=== PATIENT | female | born 1955 | race Caucasian/White ===

== ENCOUNTER 2018-06-04 20:30 | Outpatient (CLI) | payer OTHER | END 2018-06-04 20:31 | disposition home or self-care (01) | LOC: SLEEPLAB 20:30 | PROVIDERS: ATTEND Family Medicine | DX: G47.33 Obstructive sleep apnea (adult) (pediatric) (principal); R53.83 Other fatigue; G31.84 Mild cognitive impairment of uncertain or unknown etiology; R06.83 Snoring; E66.9 Obesity, unspecified; K21.9 Gastro-esophageal reflux disease without esophagitis; F32.9 Major depressive disorder, single episode, unspecified; E11.9 Type 2 diabetes mellitus without complications; I49.3 Ventricular premature depolarization; Z68.30 Body mass index [BMI] 30.0-30.9, adult | CPT/HCPCS: 95810 ==

== ENCOUNTER 2018-08-14 10:28 | Outpatient (CLI) | payer OTHER ==
--- NOTE | 2018-08-14 16:25 | MMO ---
Bilateral MAMMO Bilat Screen [facility]. CLINICAL HISTORY: Patient is 62 years old and is seen for screening. The patient has the following family history of breast cancer: mother. The patient has no personal history of cancer. VIEWS: The views performed were: bilateral craniocaudal with tomosynthesis and bilateral mediolateral oblique with tomosynthesis. FILMS COMPARED: The present examination has been compared to prior imaging studies performed at [facility] on 09/11/2016, and at [facility] on 09/28/2009 and 08/02/2011. MAMMOGRAM FINDINGS: There are scattered fibroglandular densities. There are benign appearing calcifications seen in the left breast. There are no suspicious masses, suspicious calcifications, or new areas of architectural distortion. IMPRESSION: THERE IS NO MAMMOGRAPHIC EVIDENCE OF MALIGNANCY. A ROUTINE FOLLOW-UP MAMMOGRAM IN 1 YEAR IS RECOMMENDED. THE RESULTS OF THIS EXAM WERE SENT TO THE PATIENT. ACR BI-RADS Category 2 - Benign finding MAMMOGRAPHY NOTE: 1. A negative mammogram report should not delay a biopsy if a dominant of clinically suspicious mass is present. 2. Approximately 10% to 15% of breast cancers are not detected by mammography. 3. Adenosis and dense breasts may obscure an underlying neoplasm.
== END 2018-08-14 10:29 | disposition home or self-care (01) ==
LOC: BICMAMMO 10:28
PROVIDERS: ATTEND Family Medicine
DX: Z12.31 Encounter for screening mammogram for malignant neoplasm of breast (principal); Z80.3 Family history of malignant neoplasm of breast
CPT/HCPCS: 77063; 77067

== ENCOUNTER 2020-03-02 12:50 | Outpatient (CLI) | payer OTHER ==
--- NOTE | 2020-03-02 13:30 | MMO ---
Bilateral MAMMO Bilat Screen [facility]. CLINICAL HISTORY: Patient is 64 years old and is seen for screening. The patient has the following family history of breast cancer: mother, at age 60. The patient has no personal history of cancer. VIEWS: The views performed were: bilateral craniocaudal with tomosynthesis and bilateral mediolateral oblique with tomosynthesis. FILMS COMPARED: The present examination has been compared to prior imaging studies performed at [facility] and [facility] on 06/13/2016 and 08/14/2018, and at [facility] on 09/28/2009 and 08/02/2011. This study has been interpreted with the assistance of computer-aided detection. MAMMOGRAM FINDINGS: There are scattered fibroglandular densities. There are no suspicious masses, suspicious calcifications, or new areas of architectural distortion. IMPRESSION: THERE IS NO MAMMOGRAPHIC EVIDENCE OF MALIGNANCY. A ROUTINE FOLLOW-UP MAMMOGRAM IN 1 YEAR IS RECOMMENDED. THE RESULTS OF THIS EXAM WERE SENT TO THE PATIENT. ACR BI-RADS Category 1 - Negative MAMMOGRAPHY NOTE: 1. A negative mammogram report should not delay a biopsy if a dominant of clinically suspicious mass is present. 2. Approximately 10% to 15% of breast cancers are not detected by mammography. 3. Adenosis and dense breasts may obscure an underlying neoplasm. Reported by: Mark MAC Electonically Signed: [id number]
== END 2020-03-02 12:51 | disposition home or self-care (01) ==
LOC: BICMAMMO 12:50
PROVIDERS: ATTEND Family Medicine
DX: Z12.31 Encounter for screening mammogram for malignant neoplasm of breast (principal); Z80.3 Family history of malignant neoplasm of breast
CPT/HCPCS: 77063; 77067

== ENCOUNTER 2021-02-19 09:54 | Inpatient (IN) | payer OTHER ==
[2021-02-19 10:21] LABS: #Eosinphils 0.1 thou/uL (0.0-0.7); #Lymphocytes 5.2 thou/uL (1.20-3.40); #Monocytes 0.7 thou/uL (0.11-0.59); #Neutrophils 5.9 thou/uL (1.40-6.50); %Basophils 0.4 % (0.0-1.0); %Eosinophils 1.2 % (0.0-10.0); %Lymphocytes 43.3 % (21.0-51.0); %Monocytes 6.1 % (0.0-10.0); %Neutrophils 49.1 % (42.0-75.0); Mean Corpuscular HGB CONC 33.9 g/dL (32.0-36.0); Mean Corpuscular Hemoglobin 32.3 pg (27.0-31.0); Mean Corpuscular Volume 95.1 fL (78.0-98.0); Platelet Count 259 thou/uL (130-400); RBC Distribution Width 11.7 % (11.5-14.5); Red Blood Cell (RBC) Count 4.33 mill/uL (4.20-5.40)
[2021-02-19] MEDS ORDERED: Boostrix 0.5 ML (Tdap) VIAL ONE (10:41)
[2021-02-19] MEDS ORDERED: Fentanyl 100 MCG/2 ML VIAL ONE (10:41)
[2021-02-19] MEDS ORDERED: ceFAZolin 2 GM/DEX 5% 100 ML BAG ONE (10:41)
[2021-02-19 10:43] LABS: ALT (SGPT) 40 U/L (8-55); AST (SGOT) 49 U/L (5-34); Albumin 3.7 g/dL (3.4-4.8); Alcohol Less than 10 mg/dL (Less than 10); Alkaline Phosphatase 97 U/L (40-110); Anion Gap 16 mmol/L (10-20); BUN (Urea Nitrogen) 12 mg/dL (9.8-20.1); Bilirubin, Total 0.5 mg/dL (0.2-1.2); Calc. Creatinine Clearance 0 mL/min (70-130); Carbon Dioxide 22 mmol/L (23-31); Chloride 102 mmol/L (98-107); Globulin 3.1 g/dL (2.4-3.5); Glucose 204 mg/dL (80-115); Lipase 114 U/L (8-78); Potassium 4.6 mmol/L (3.5-5.1); Protein, Total 6.8 g/dL (5.8-8.1); Sodium 135 mmol/L (136-145)
[2021-02-19] MEDS ORDERED: Lidocaine 1% w/Epinephrine 1:100K 20 ML VIAL ONE (10:53)
[2021-02-19 11:40] LABS: PTT 29.4 sec (22.9-36.1); Prothrombin Time 13.5 sec (12.0-14.7)
[2021-02-19] MEDS ORDERED: Dextrose 5% in Water 1,000 ML IV PRN (12:01)
[2021-02-19] MEDS ORDERED: Dextrose 50% Abboject 50 ML SYRINGE SLOW IVP PRN (12:01)
[2021-02-19] MEDS ORDERED: Ondansetron PF 4 MG/2 ML Vial IVP PRN (12:01)
[2021-02-19] MEDS ORDERED: Promethazine HCl 25 MG/ML VIAL IM PRN (12:01)
[2021-02-19] MEDS ORDERED: traMADol HCl 50 MG TAB PO PRN (12:08)
[2021-02-19] MEDS ORDERED: Sodium Chloride 0.9% 1,000 ML IV SCH (12:15)
[2021-02-19] MEDS ORDERED: Morphine 2 MG/ML VIAL ONE (12:51)
[2021-02-19 13:27] LABS: #Lymphocytes 1.4 thou/uL (1.20-3.40); #Neutrophils 9.9 thou/uL (1.40-6.50); %Basophils 0.2 % (0.0-1.0); %Eosinophils 0.1 % (0.0-10.0); %Lymphocytes 11.4 % (21.0-51.0); %Monocytes 8.3 % (0.0-10.0); Hemoglobin 12.6 g/dL (12.0-16.0); Mean Corpuscular HGB CONC 35.3 g/dL (32.0-36.0); Mean Corpuscular Hemoglobin 33.7 pg (27.0-31.0); Mean Corpuscular Volume 95.5 fL (78.0-98.0); Mean Platelet Volume 6.8 fL (7.4-10.4); Platelet Count 231 thou/uL (130-400); RBC Distribution Width 11.7 % (11.5-14.5); Red Blood Cell (RBC) Count 3.73 mill/uL (4.20-5.40); White Blood Cell (WBC) Count 12.4 thou/uL (4.8-10.8)
[2021-02-19 13:43] LABS: Lactic Acid 3.5 mmol/L (0.5-2.2)
[2021-02-19 13:46] LABS: Anion Gap 14 mmol/L (10-20); BUN (Urea Nitrogen) 13 mg/dL (9.8-20.1); Calc. Creatinine Clearance 0 mL/min (70-130); Calcium 8.3 mg/dL (7.8-10.44); Carbon Dioxide 22 mmol/L (23-31); Chloride 104 mmol/L (98-107); Glucose 206 mg/dL (80-115); Sodium 135 mmol/L (136-145)
[2021-02-19 13:52] LABS: Troponin I Less than 0.010 ng/mL (< 0.028)
[2021-02-19] MEDS: Acetaminophen 500 MG TAB PO SCH ×2 (15:09→17:52)
[2021-02-19] MEDS: Gabapentin 100 MG CAP PO SCH ×2 (15:09→20:36)
[2021-02-19 15:14] LABS: SARS-CoV-2 NAA Rapid Test Not Detected (NotDetected)
[2021-02-19] MEDS: Sodium Chloride 0.9% 1,000 ML IV SCH ×2 (15:55→21:51)
[2021-02-19] MEDS: traMADol HCl 50 MG TAB PO SCH (17:52)
[2021-02-19] MEDS ORDERED: ceFAZolin Sodium/D5W 2 GM in Premix Bag 1 BAG IVPB SCH (18:00)
[2021-02-19] MEDS: Atorvastatin Calcium 10 MG TAB PO SCH (20:36)
[2021-02-19] MEDS: Cyclobenzaprine 10 MG TAB PO PRN (20:37)
[2021-02-19] MEDS: Famotidine 20 MG TAB PO SCH (20:37)
[2021-02-19] MEDS: Famotidine/PF 20 mg/2ml Vial SLOW IVP SCH (20:37)
[2021-02-19] MEDS: Senokot S 8.6-50 MG TAB PO SCH (20:38)
[2021-02-20] MEDS: traMADol HCl 50 MG TAB PO SCH ×5 (00:01→23:19)
[2021-02-20] MEDS: Acetaminophen 500 MG TAB PO SCH ×5 (00:01→23:19)
[2021-02-20] MEDS: Morphine 2 MG/ML VIAL SLOW IVP PRN ×2 (02:56→08:56)
[2021-02-20 04:16] LABS: #Lymphocytes 2.1 thou/uL (1.20-3.40); #Monocytes 0.7 thou/uL (0.11-0.59); #Neutrophils 5.5 thou/uL (1.40-6.50); %Basophils 0.3 % (0.0-1.0); %Eosinophils 0.1 % (0.0-10.0); %Lymphocytes 25.8 % (21.0-51.0); %Neutrophils 65.8 % (42.0-75.0); Hemoglobin 10.9 g/dL (12.0-16.0); Mean Corpuscular HGB CONC 34.5 g/dL (32.0-36.0); Mean Corpuscular Hemoglobin 33.3 pg (27.0-31.0); Mean Corpuscular Volume 96.4 fL (78.0-98.0); Mean Platelet Volume 6.9 fL (7.4-10.4); Platelet Count 188 thou/uL (130-400); RBC Distribution Width 11.8 % (11.5-14.5); Red Blood Cell (RBC) Count 3.28 mill/uL (4.20-5.40); White Blood Cell (WBC) Count 8.3 thou/uL (4.8-10.8)
[2021-02-20 04:34] LABS: Phosphorus 3.5 mg/dL (2.3-4.7)
[2021-02-20 04:36] LABS: Anion Gap 12 mmol/L (10-20); BUN (Urea Nitrogen) 10 mg/dL (9.8-20.1); Calc. Creatinine Clearance 94 mL/min (70-130); Calcium 7.9 mg/dL (7.8-10.44); Carbon Dioxide 25 mmol/L (23-31); Chloride 101 mmol/L (98-107); Glucose 164 mg/dL (80-115); Magnesium 1.5 mg/dL (1.6-2.6); Potassium 4.3 mmol/L (3.5-5.1); Sodium 134 mmol/L (136-145)
[2021-02-20] MEDS ORDERED: Hydrocortisone Sod Succ/PF 100 mg/2 ml Vial IVP SCH (05:00)
[2021-02-20] MEDS: Sodium Chloride 0.9% 1,000 ML IV SCH ×3 (05:13→23:55)
[2021-02-20] MEDS ORDERED: Magnesium Sulfate 3 GM in Sodium Chloride 0.9% 100 ML IV SCH (05:30)
[2021-02-20] MEDS: Polyethylene Glycol 3350 17 GM Packet PO SCH (09:08)
[2021-02-20] MEDS: Senokot S 8.6-50 MG TAB PO SCH ×2 (09:08→20:08)
[2021-02-20] MEDS: Famotidine 20 MG TAB PO SCH ×2 (09:08→20:00)
[2021-02-20] MEDS: Gabapentin 100 MG CAP PO SCH ×3 (09:08→20:06)
[2021-02-20] MEDS: FLUoxetine HCl 20 MG CAP PO SCH (09:08)
[2021-02-20] MEDS: Multivit, Therapeutic 1 TAB PO SCH (09:08)
[2021-02-20] MEDS: Famotidine/PF 20 mg/2ml Vial SLOW IVP SCH ×2 (09:08→21:28)
[2021-02-20] MEDS ORDERED: ceFAZolin 2 GM/DEX 5% 100 ML BAG ONE (09:30)
[2021-02-20] MEDS ORDERED: Fentanyl 100 MCG/2 ML VIAL ONE ×2 (09:45→10:57)
[2021-02-20] MEDS ORDERED: Lidocaine 2% Jelly 5 ML TUBE ONE (09:45)
[2021-02-20] MEDS ORDERED: HYDROmorphone 2 MG/ML VIAL ONE (10:57)
[2021-02-20] MEDS ORDERED: Midazolam HCl 2 mg/2 ml Vial ONE (11:17)
[2021-02-20] MEDS ORDERED: Dexamethasone 20 MG/5 ML VIAL ONE (11:51)
[2021-02-20] MEDS ORDERED: Lidocaine 1% PF 5 ML VIAL ONE (11:51)
[2021-02-20] MEDS ORDERED: ePHEDrine 50 MG/ML VIAL ONE (11:51)
[2021-02-20] MEDS ORDERED: PHENYLEPHRINE-NS 100 MCG/ML 10 ML SYRINGE ONE ×2 (11:51→12:39)
[2021-02-20] MEDS ORDERED: Rocuronium Bromide 10 MG/ML (10ML VIAL) ONE (11:51)
[2021-02-20] MEDS ORDERED: Ondansetron PF 4 MG/2 ML Vial ONE (11:51)
[2021-02-20] MEDS ORDERED: Glycopyrrolate 0.2 MG/ML 5 ML SYRINGE ONE (11:51)
[2021-02-20] MEDS ORDERED: PROPOFOL 200 MG/20 ML VIAL ONE (11:51)
[2021-02-20] MEDS ORDERED: ePHEDrine Sulfate 50 MG/10 ML VIAL ONE (12:39)
[2021-02-20] MEDS ORDERED: Ondansetron HCl/PF 4 MG/2 ML Vial IVP PRN (13:09)
[2021-02-20] MEDS ORDERED: HYDROmorphone 2 MG/ML VIAL SLOW IVP PRN (13:09)
[2021-02-20] MEDS ORDERED: Promethazine HCl 25 MG/ML VIAL IVPB PRN (13:09)
[2021-02-20] MEDS ORDERED: Promethazine HCl 25 MG/ML VIAL IM PRN (13:09)
[2021-02-20] MEDS: Hydrocortisone Sod Succ/PF 100 mg/2 ml Vial IVP SCH ×2 (14:33→21:18)
[2021-02-20] MEDS ORDERED: TRULICITY SC SCH (17:00)
[2021-02-20] MEDS: HumaLOG 300 UNITS/3 ML VIAL SC PRN ×2 (17:42→21:18)
[2021-02-20] MEDS: ceFAZolin Sodium/D5W 2 GM in Premix Bag 1 BAG IVPB SCH (18:39)
[2021-02-20] MEDS: Atorvastatin Calcium 10 MG TAB PO SCH (20:00)
[2021-02-21] MEDS: ceFAZolin Sodium/D5W 2 GM in Premix Bag 1 BAG IVPB SCH (02:44)
[2021-02-21] MEDS: Acetaminophen 500 MG TAB PO SCH ×4 (05:03→23:21)
[2021-02-21] MEDS: Hydrocortisone Sod Succ/PF 100 mg/2 ml Vial IVP SCH (05:03)
[2021-02-21] MEDS: traMADol HCl 50 MG TAB PO SCH ×5 (05:04→23:22)
[2021-02-21] MEDS: HumaLOG 300 UNITS/3 ML VIAL SC PRN ×3 (05:45→18:34)
[2021-02-21 05:52] VITALS: BMI 33.3
[2021-02-21] MEDS ORDERED: Lisinopril 20 MG TAB PO SCH (09:00)
[2021-02-21] MEDS: Sodium Chloride 0.9% 1,000 ML IV SCH ×3 (09:15→23:27)
[2021-02-21] MEDS: Gabapentin 100 MG CAP PO SCH ×3 (09:16→20:03)
[2021-02-21] MEDS: Senokot S 8.6-50 MG TAB PO SCH ×2 (09:16→20:03)
[2021-02-21] MEDS: Lisinopril 20 MG TAB PO SCH (09:16)
[2021-02-21] MEDS: Famotidine 20 MG TAB PO SCH ×2 (09:16→20:02)
[2021-02-21] MEDS: FLUoxetine HCl 20 MG CAP PO SCH (09:17)
[2021-02-21] MEDS: Multivit, Therapeutic 1 TAB PO SCH (09:18)
[2021-02-21] MEDS: Polyethylene Glycol 3350 17 GM Packet PO SCH (09:18)
[2021-02-21] MEDS: metFORMIN 500 MG TAB PO SCH (09:24)
[2021-02-21] MEDS: Enoxaparin Sodium 40 MG/0.4 ML SYRINGE SC SCH (09:24)
[2021-02-21] MEDS: Cyclobenzaprine 10 MG TAB PO PRN (13:07)
[2021-02-21] MEDS: Gabapentin 300 MG CAP PO SCH (21:31)
[2021-02-22] MEDS: Acetaminophen 500 MG TAB PO SCH ×4 (05:05→21:22)
[2021-02-22] MEDS: traMADol HCl 50 MG TAB PO SCH ×3 (05:05→17:13)
[2021-02-22 06:23] LABS: #Eosinphils 0.1 thou/uL (0.0-0.7); #Lymphocytes 3.1 thou/uL (1.20-3.40); #Monocytes 0.6 thou/uL (0.11-0.59); #Neutrophils 4.1 thou/uL (1.40-6.50); %Basophils 0.5 % (0.0-1.0); %Eosinophils 1.8 % (0.0-10.0); %Lymphocytes 38.5 % (21.0-51.0); %Monocytes 7.6 % (0.0-10.0); %Neutrophils 51.7 % (42.0-75.0); Hemoglobin 8.1 g/dL (12.0-16.0); Mean Corpuscular HGB CONC 33.4 g/dL (32.0-36.0); Mean Corpuscular Hemoglobin 32.5 pg (27.0-31.0); Mean Corpuscular Volume 97.4 fL (78.0-98.0); Mean Platelet Volume 7.3 fL (7.4-10.4); Platelet Count 140 thou/uL (130-400); Red Blood Cell (RBC) Count 2.49 mill/uL (4.20-5.40); White Blood Cell (WBC) Count 7.9 thou/uL (4.8-10.8)
[2021-02-22 06:44] LABS: Anion Gap 8 mmol/L (10-20); BUN (Urea Nitrogen) 10 mg/dL (9.8-20.1); Calc. Creatinine Clearance 125 mL/min (70-130); Calcium 8.2 mg/dL (7.8-10.44); Carbon Dioxide 29 mmol/L (23-31); Chloride 104 mmol/L (98-107); Glucose 156 mg/dL (80-115); Magnesium 1.8 mg/dL (1.6-2.6); Potassium 4.2 mmol/L (3.5-5.1); Sodium 137 mmol/L (136-145)
[2021-02-22 06:47] LABS: Phosphorus 1.5 mg/dL (2.3-4.7)
[2021-02-22] MEDS: Lisinopril 20 MG TAB PO SCH (08:51)
[2021-02-22] MEDS: Multivit, Therapeutic 1 TAB PO SCH (08:51)
[2021-02-22] MEDS: FLUoxetine HCl 20 MG CAP PO SCH (08:52)
[2021-02-22] MEDS: Ascorbic Acid 500 mg Chewable Tablet PO SCH ×2 (08:52→20:42)
[2021-02-22] MEDS: metFORMIN 500 MG TAB PO SCH (08:52)
[2021-02-22] MEDS: Gabapentin 300 MG CAP PO SCH ×3 (08:53→20:42)
[2021-02-22] MEDS: Ferrous Sulfate 325 MG TAB PO SCH ×2 (08:53→17:14)
[2021-02-22] MEDS: Enoxaparin Sodium 40 MG/0.4 ML SYRINGE SC SCH (08:55)
[2021-02-22] MEDS: Polyethylene Glycol 3350 17 GM Packet PO SCH (08:55)
[2021-02-22] MEDS: Famotidine 20 MG TAB PO SCH ×2 (08:55→20:43)
[2021-02-22] MEDS: Senokot S 8.6-50 MG TAB PO SCH ×2 (08:55→20:43)
[2021-02-22] MEDS: Cyclobenzaprine 10 MG TAB PO PRN (09:01)
[2021-02-22] MEDS: Magnesium 2 GM/50 ML 2 GM in Premix Bag 1 BAG IVPB SCH ×2 (10:30→11:59)
[2021-02-22] MEDS: PHOS-NAK 1 PKT PACK PO SCH ×2 (11:39→20:43)
[2021-02-22] MEDS ORDERED: Magnesium 2 GM/50 ML 2 GM in Premix Bag 1 BAG IVPB SCH (12:00)
[2021-02-22] MEDS: Ketorolac Tromethamine 30 MG/ML VIAL IVP SCH ×2 (12:16→17:13)
[2021-02-22 20:27] VITALS: BP 103/65; TEMP 98.4
[2021-02-22] MEDS: Atorvastatin Calcium 10 MG TAB PO SCH (20:43)
[2021-02-23] MEDS ORDERED: Transdermal Patch Removal TOP SCH (01:00)
[2021-02-23] MEDS ORDERED: Levothyroxine Sodium 25 MCG TAB PO SCH (06:00)
[2021-02-23] MEDS ORDERED: Levothyroxine Sodium 112 MCG TAB PO SCH (06:00)
[2021-02-23] MEDS ORDERED: Cholecalciferol 1,000 UNITS (25 MCG) TAB PO SCH (09:00)
[2021-02-23] MEDS ORDERED: Lidocaine 5% Patch TD SCH (13:00)
== END 2021-02-22 21:45 | DRG 516 ==
LOC: ERS 09:54 → IMCU/EMU 12:06 → SURG A 02-20 09:54
PROVIDERS: ADMIT Surgery; ATTEND Surgery
PROC: 0SH834Z Insertion of Internal Fixation Device into Left Sacroiliac Joint, Percutaneous Approach (ICD-10-PCS; principal; 2021-02-20)
DX: S32.810A Multiple fractures of pelvis with stable disruption of pelvic ring, initial encounter for closed fracture (principal); S42.294A Other nondisplaced fracture of upper end of right humerus, initial encounter for closed fracture; S22.41XA Multiple fractures of ribs, right side, initial encounter for closed fracture; Z20.822 Contact with and (suspected) exposure to COVID-19; S42.025A Nondisplaced fracture of shaft of left clavicle, initial encounter for closed fracture; S82.832A Other fracture of upper and lower end of left fibula, initial encounter for closed fracture; E11.9 Type 2 diabetes mellitus without complications; I10 Essential (primary) hypertension; E78.5 Hyperlipidemia, unspecified; E03.9 Hypothyroidism, unspecified; V03.00XA Pedestrian on foot injured in collision with car, pick-up truck or van in nontraffic accident, initial encounter; Z88.1 Allergy status to other antibiotic agents; Z79.84 Long term (current) use of oral hypoglycemic drugs; Z79.890 Hormone replacement therapy; Z79.899 Other long term (current) drug therapy
CPT/HCPCS: 36415; 36416; 70450; 71045; 71260; 72125; 72170; 72202; 74177; 76000; 80048; 80053; 80307; 82533; 83605; 83690; 83735; 84100; 84484; 85025; 85610; 85730; 86850; 86900; 86901; 87624; 88142; 90715; 93005; 93306; C1713; C1769; G0123; G0390; J1100; J1170; J1650; J1720; J1815; J1885; J2250; J2270; J2405; J2704; J3010; J3475; J3490; J7050; U0002

== ENCOUNTER 2022-04-03 12:33 | Outpatient (CLI) | payer OTHER | END 2022-04-03 12:34 | disposition home or self-care (01) | LOC: BICRAD 12:33 | PROVIDERS: ATTEND Physical Therapist | DX: S22.43 Multiple fractures of ribs, bilateral (principal); S82.832B Other fracture of upper and lower end of left fibula, initial encounter for open fracture type I or II; S32.59 Other specified fracture of pubis; S32.10XB Unspecified fracture of sacrum, initial encounter for open fracture; S42.002B Fracture of unspecified part of left clavicle, initial encounter for open fracture; S42.301B Unspecified fracture of shaft of humerus, right arm, initial encounter for open fracture ==

== ENCOUNTER 2022-06-06 09:39 | Outpatient (CLI) | payer OTHER | END 2022-06-06 09:40 | disposition home or self-care (01) | LOC: BICMAMMO 09:39 | PROVIDERS: ATTEND Family Medicine | DX: Z12.31 Encounter for screening mammogram for malignant neoplasm of breast (principal); Z80.3 Family history of malignant neoplasm of breast | CPT/HCPCS: 77063; 77067 ==

== ENCOUNTER 2023-03-06 09:45 | Outpatient (CLI) | payer OTHER | END 2023-03-06 09:46 | disposition home or self-care (01) | LOC: BICMAMMO 09:45 | PROVIDERS: ATTEND Family Medicine | DX: Z13.820 Encounter for screening for osteoporosis (principal); M81.0 Age-related osteoporosis without current pathological fracture; M85.851 Other specified disorders of bone density and structure, right thigh; Z78.0 Asymptomatic menopausal state | CPT/HCPCS: 77080 ==

== ENCOUNTER 2023-10-10 08:08 | Outpatient (CLI) | payer MEDICARE, OTHER ==
[2023-10-10 16:44] LABS: #Basophils 0.05 10x3/uL (0.0-0.2); %Basophils 0.8 % (0.0-1.0); %Eosinophils 2.4 % (0.0-10.0); %Lymphocytes 48.7 % (21.0-51.0); %Monocytes 6.1 % (0.0-10.0); %Neutrophils 41.8 % (42.0-75.0); Hematocrit 44.7 % (36.0-47.0); Hemoglobin 14.8 g/dL (12.0-16.0); Mean Corpuscular HGB CONC 33.1 g/dL (32.0-36.0); Mean Corpuscular Hemoglobin 32.2 pg (27.0-31.0); Mean Corpuscular Volume 97.2 fL (78.0-98.0); Mean Platelet Volume 10.2 fL (7.4-10.4); Platelet Count 235 10x3/uL (130-400); RBC Distribution Width 12.7 % (11.5-14.5)
[2023-10-10 17:25] LABS: ALT (SGPT) 22 U/L (8-55); AST (SGOT) 22 U/L (5-34); Albumin 4.1 g/dL (3.4-4.8); Alkaline Phosphatase 133 U/L (40-110); Anion Gap 15 mmol/L (10-20); BUN (Urea Nitrogen) 9 mg/dL (9.8-20.1); Bilirubin, Total 0.9 mg/dL (0.2-1.2); Calc. Creatinine Clearance 0 mL/min (70-130); Calcium 9.4 mg/dL (7.8-10.44); Carbon Dioxide 25 mmol/L (23-31); Cardiac Risk 5.2 (Less than 4.5); Chloride 101 mmol/L (98-107); Cholesterol 239 mg/dl (< 200 Desired); Estimated GFR 74; Globulin 3.1 g/dL (2.4-3.5); Glucose 95 mg/dL (80-115); HDL Cholesterol 46 mg/dL (>60 Neg Risk); LDL Cholesterol, Calculated 123 mg/dL; Potassium 4.2 mmol/L (3.5-5.1); Protein, Total 7.2 g/dL (5.8-8.1); Sodium 137 mmol/L (136-145); Triglycerides 351 mg/dL (Less than 150)
[2023-10-10 17:35] LABS: Hemoglobin A1c 5.6 % (4.0-6.0)
[2023-10-10 17:51] LABS: Thyroid Stimulating Hormone 2.1256 uIU/mL (0.35-4.94)
[2023-10-10 18:24] LABS: Vitamin D, 25 Hydroxy 32.7 ng/ml (> 30.0)
== END 2023-10-10 08:09 | disposition home or self-care (01) ==
LOC: SCSLAB 08:08
PROVIDERS: ATTEND Family Medicine
DX: E11.9 Type 2 diabetes mellitus without complications (principal); E55.9 Vitamin D deficiency, unspecified; E03.9 Hypothyroidism, unspecified; E53.8 Deficiency of other specified B group vitamins
CPT/HCPCS: 36415; 80053; 80061; 82306; 82607; 83036; 84443; 85025